=== PATIENT | male | born 1995 | race Caucasian/White ===

== ENCOUNTER 2017-01-29 00:40 | Emergency (ER) | payer SELFPAY ==
[2017-01-29] MEDS ORDERED: Cephalexin 500 MG Cap PO ONE (01:04)
[2017-01-29] MEDS ORDERED: Bacitracin Oint 1 GM U/D Packet TOP ONE (01:04)
--- NOTE | 2017-01-29 01:09 | EDM.PDOC ---
ED HPI GENERAL MEDICAL PROBLEM - General Chief Complaint: Skin Complaint Stated Complaint: LEFT FOOT BIG TOENAIL Time Seen by Provider: 01/29/17 01:05 Source of Information: Reports: Patient - History of Present Illness INITIAL COMMENTS - FREE TEXT/NARRATIVE: HISTORY AND PHYSICAL: History of present illness: []Patient presents couple days ago he stubbed his toe leading to lifting at his toenail on the left great toe He removed obtain toenail on his own at home tonight, and presents for a check. The toenail itself is completely remove minimal bleeding there is no redness warmth or exudate culture No fever nausea vomiting chills sweats Review of systems: As per history of present illness and below otherwise all systems reviewed and negative. Past medical history: As per history of present illness and as reviewed below otherwise noncontributory. Surgical history: As per history of present illness and as reviewed below otherwise noncontributory. Social history: No reported history of drug or alcohol abuse. Family history: As per history of present illness and as reviewed below otherwise noncontributory. Physical exam: HEENT: Atraumatic, normocephalic, pupils reactive, negative for conjunctival pallor or scleral icterus, mucous membranes moist, throat clear, neck supple, nontender, trachea midline. Lungs: Clear to auscultation, breath sounds equal bilaterally, chest nontender. Heart: S1S2, regular, negative for clicks, rubs, or JVD. Abdomen: Soft, nondistended, nontender. Negative for masses or hepatosplenomegaly. Negative for costovertebral tenderness. Pelvis: Stable nontender. Genitourinary: Deferred. Rectal: Deferred. Extremities: Atraumatic, negative for cords or calf pain. Neurovascular unremarkable. Neuro: Awake, alert, oriented. Cranial nerves II through XII unremarkable. Cerebellum unremarkable. Motor and sensory unremarkable throughout. Exam nonfocal. Left foot as per history of present illness otherwise unremarkable Diagnostics: []Patient declines x-rays/refused x-ray of great toe Therapeutics: []Tetanus status is updated Keflex 500 mg now and twice a day #20 no refill Epsom soaks 3 times a day 7 days Impression: Patient self removal of toenail left great toe Definitive disposition and diagnosis as appropriate pending reevaluation and review of above. Left 1-Hallux Pain Score (Numeric/FACES): 1 - Related Data Allergies Allergy/AdvReac Type Severity Reaction Status Date / Time No Known Allergies Allergy Verified 01/29/17 00:53 Home Meds: Home Meds . [No Known Home Meds] 01/29/17 [History] Past Medical History - Past Health History Medical/Surgical History: Denies Medical/Surgical History Social & Family History - Family History Family Medical History: Noncontributory - Tobacco Use Smoking Status *Q: Never Smoker Second Hand Smoke Exposure: No - Caffeine Use Caffeine Use: Reports: Coffee Caffeine Use Comment: 1cup/day - Recreational Drug Use Recreational Drug Use: No ED ROS GENERAL - Review of Systems Review Of Systems: ROS reveals no pertinent complaints other than HPI. ED EXAM, SKIN/RASH Exam: See Below Course - Vital Signs Last Recorded V/S: Last Vital Signs Temp 36.8 C 01/29/17 00:50 Pulse 101 H 01/29/17 00:50 Resp 18 01/29/17 00:50 BP 141/82 H 01/29/17 00:50 Pulse Ox 100 01/29/17 00:50 - Orders/Labs/Meds Meds: Medications Discontinued Medications Generic Name Dose Route Start Last Admin Trade Name Conq PRN Reason Stop Dose Admin Bacitracin 1 dose 01/29/17 01:04 Bacitracin Oint 1 Gm TOP 01/29/17 01:05 ONETIME ONE Cephalexin 500 mg 01/29/17 01:04 Keflex PO 01/29/17 01:05 ONETIME ONE Departure - Departure Time of Disposition: 01:07 Disposition: Home, Self-Care 01 Condition: Good Clinical Impression: Toenail torn away - Discharge Information Forms: ED Department Discharge Additional Instructions: Epsom soaks 3 times daily 7-10 days Keflex 500 mg by mouth twice a day #20 no refill Return if redness warmth or pus drainage Bacitracin and Telfa dressings as needed Keep foot clean and dry Follow-up with primary care in 2 weeks sooner as needed
[2017-01-29 02:19] VITALS: BP 130/75
== END 2017-01-29 01:40 | disposition home or self-care (01) ==
LOC: MW.ED 00:40
DX: S91.202A Unspecified open wound of left great toe with damage to nail, initial encounter (principal); X58.XXXA Exposure to other specified factors, initial encounter
CPT/HCPCS: 99283; A9270; 99282

== ENCOUNTER 2018-12-25 21:32 | Emergency (ER) | payer OTHER ==
--- NOTE | 2018-12-25 22:10 | EDM.PDOC ---
ED HPI GENERAL MEDICAL PROBLEM - General Chief Complaint: ENT Problem Stated Complaint: HEARING LOSS IN RT EAR Time Seen by Provider: 12/25/18 21:59 Source of Information: Reports: Patient History Limitations: Reports: No Limitations - History of Present Illness INITIAL COMMENTS - FREE TEXT/NARRATIVE: HISTORY AND PHYSICAL: History of present illness: Patient is a 23-year-old male presents to the ED with complaint of unable to hear from his right ear. He states it has been bothering him on and off for the past week, today got worse. States his hearing is not completely gone but is very muffled. He occasionally has pain in the ear. Denies fevers, chills, nasal congestion, cough, headache, SOB. He also notes some ringing in his ear. Review of systems: As per history of present illness and below otherwise all systems reviewed and negative. Past medical history: As per history of present illness and as reviewed below otherwise noncontributory. Surgical history: As per history of present illness and as reviewed below otherwise noncontributory. Social history: No reported history of drug or alcohol abuse. Family history: As per history of present illness and as reviewed below otherwise noncontributory. Physical exam: General: Patient sitting comfortably in no acute distress and nontoxic appearing HEENT: Left TM clear. Right TM not visualized secondary to cerumen impaction. Atraumatic, normocephalic, pupils reactive, negative for conjunctival pallor or scleral icterus, mucous membranes moist, throat clear, neck supple, nontender, trachea midline. No meningeal signs. Lungs: Clear to auscultation, breath sounds equal bilaterally, chest nontender. Heart: S1S2, regular, negative for clicks, rubs, or overt murmur. Abdomen: Soft, nondistended, nontender. Negative for masses or hepatosplenomegaly. Negative for costovertebral tenderness. No rigidity, rebound , guarding. Pelvis: Stable nontender. Genitourinary: Deferred. Rectal: Deferred. Extremities: Atraumatic, negative for cords or calf pain. Neurovascular unremarkable. Neuro: Awake, alert, oriented. Cranial nerves II through XII unremarkable. Cerebellum unremarkable. Motor and sensory unremarkable throughout. Exam nonfocal. Notes: Diagnostics: None Therapeutics: cerumen removal Prescriptions: Impression: Cerumen impaction, otitis externa Plan: 1. Use drops as instructed, avoid water in ears. 2. Follow up with primary care provider 3. return to ED as needed as discussed Definitive disposition and diagnosis as appropriate pending reevaluation and review of above. Right ear Pain Score (Numeric/FACES): 10 - Related Data Allergies Allergy/AdvReac Type Severity Reaction Status Date / Time No Known Allergies Allergy Verified 12/25/18 21:39 Home Meds: Home Meds Ciprofloxacin/Hydrocortisone [Cipro HC Otic Susp] 1 drop OT BID #1 bottle [Rx] Past Medical History - Past Health History Medical/Surgical History: Denies Medical/Surgical History HEENT History: Reports: None Cardiovascular History: Reports: None Respiratory History: Reports: None Gastrointestinal History: Reports: None Genitourinary History: Reports: None Musculoskeletal History: Reports: None Neurological History: Reports: None Psychiatric History: Reports: None Endocrine/Metabolic History: Reports: None Hematologic History: Reports: None Immunologic History: Reports: None Oncologic (Cancer) History: Reports: None Dermatologic History: Reports: None - Past Surgical History Head Surgeries/Procedures: Reports: None HEENT Surgical History: Reports: Myringotomy w Tube(s) Cardiovascular Surgical History: Reports: None Respiratory Surgical History: Reports: None GI Surgical History: Reports: None Male Surgical History: Reports: None Endocrine Surgical History: Reports: None Neurological Surgical History: Reports: None Musculoskeletal Surgical History: Reports: None Oncologic Surgical History: Reports: None Dermatological Surgical History: Reports: None Social & Family History - Family History Family Medical History: Noncontributory - Tobacco Use Smoking Status *Q: Current Every Day Smoker Years of Tobacco use: 2 Packs/Tins Daily: 1 - Caffeine Use Caffeine Use: Reports: Coffee, Energy Drinks Caffeine Use Comment: 1cup/day - Recreational Drug Use Recreational Drug Use: No ED ROS ENT - Review of Systems Review Of Systems: ROS reveals no pertinent complaints other than HPI. ED EXAM, ENT - Physical Exam Exam: See Below (see dictation) Course - Vital Signs Last Recorded V/S: Last Vital Signs Temp 96.6 F 12/25/18 21:39 Pulse 101 H 12/25/18 21:39 Resp 18 12/25/18 21:39 BP 155/89 H 12/25/18 21:39 Pulse Ox 97 12/25/18 21:39 Departure - Departure Time of Disposition: 22:40 Disposition: Home, Self-Care 01 Condition: Good Clinical Impression: Impacted cerumen of right ear, Otitis externa of right ear - Discharge Information Prescriptions: Ciprofloxacin/Hydrocortisone [Cipro HC Otic Susp] 1 drop OT BID #1 bottle Referrals: PCP,None [Primary Care Provider] - Forms: ED Department Discharge Additional Instructions: The following information is given to patients seen in the emergency department who are being discharged to home. This information is to outline your options for follow-up care. We provide all patients seen in our emergency department with a follow-up referral. The need for follow-up, as well as the timing and circumstances, are variable depending upon the specifics of your emergency department visit. If you don't have a primary care physician on staff, we will provide you with a referral. We always advise you to contact your personal physician following an emergency department visit to inform them of the circumstance of the visit and for follow-up with them and/or the need for any referrals to a consulting specialist. The emergency department will also refer you to a specialist when appropriate. This referral assures that you have the opportunity for follow-up care with a specialist. All of these measure are taken in an effort to provide you with optimal care, which includes your follow-up. Under all circumstances we always encourage you to contact your private physician who remains a resource for coordinating your care. When calling for follow-up care, please make the office aware that this follow-up is from your recent emergency room visit. If for any reason you are refused follow-up, please contact the [facility] at and asked to speak to the emergency department charge nurse. [facility] [address] [place] [id number] [id number] 1. Use drops as instructed, avoid water in ears. 2. Follow up with primary care provider 3. return to ED as needed as discussed
[2018-12-25 23:00] VITALS: BP 150/90
== END 2018-12-25 22:57 | disposition home or self-care (01) ==
LOC: MW.ED 21:32
DX: H61.21 Impacted cerumen, right ear (principal); H60.91 Unspecified otitis externa, right ear
CPT/HCPCS: 99282

== ENCOUNTER 2019-11-29 03:31 | Emergency (ER) | payer OTHER ==
[2019-11-29] MEDS ORDERED: Ibuprofen 600 MG Tab ONE (03:53)
[2019-11-29] MEDS ORDERED: Acetaminophen/HYDROcodone 325-5 MG Tab ONE (03:53)
[2019-11-29 08:51] VITALS: BP 180/91; PULSE 120
--- NOTE | 2019-11-29 11:20 | CR ---
Indication: Trauma Technique: Three views of the left ankle Comparison: None Findings: There is no fracture or joint dislocation. The ankle joint is congruent. There is no appreciable joint effusion. Mild edema is noted over the anterior and lateral ankle. Impression: No acute fracture or dislocation. Dictated by Rena Calderon MD @ Nov 29 2019 4:51AM Signed by: Rena Calderon MD @11/29/2019 4:53:40 AM (Electronic Signature) [facility]
== END 2019-11-29 04:20 | disposition home or self-care (01) ==
LOC: MW.ED 03:31
DX: S93.402A Sprain of unspecified ligament of left ankle, initial encounter (principal); S70.211A Abrasion, right hip, initial encounter; S80.212A Abrasion, left knee, initial encounter; V28.4XXA Motorcycle driver injured in noncollision transport accident in traffic accident, initial encounter
CPT/HCPCS: 73610-26-LT; 73610-LT; 99283

== ENCOUNTER 2021-12-22 12:22 | Emergency (ER) | payer OTHER ==
[2021-12-22 15:09] LABS: CORONAVIRUS COVID-19 NAA NEGATIVE (NEGATIVE); INFLUENZA A NAA NEGATIVE (NEGATIVE); INFLUENZA B NAA NEGATIVE (NEGATIVE)
[2021-12-22] MEDS ORDERED: Sodium Chloride 0.9% 1,000 ML IV ONE ×3 (15:19→17:15)
[2021-12-22 15:46] LABS: HEMOGLOBIN A1C 10.8 %
[2021-12-22 15:49] LABS: CARBON DIOXIDE,CO2 10.3 mmol/L (21.0-32.0); POTASSIUM,K 3.7 mmol/L (3.5-5.1)
[2021-12-22] MEDS ORDERED: 50% Dextrose in Water 50 ML Syringe IVPUSH PRN (16:18)
[2021-12-22] MEDS ORDERED: Glucagon,Human Recombinant 1 MG Vial IM PRN (16:18)
[2021-12-22] MEDS ORDERED: Insulin Regular, Human 100 Units/ML 10 ML Vial SUBCUT ONE (16:18)
[2021-12-22] MEDS ORDERED: Insulin Regular in 0.9 % NACL 100 ML IV SCH (16:30)
[2021-12-22] MEDS ORDERED: Sodium Bicarbonate 8.4% 50 MEQ/50 ML Syringe IVPUSH ONE (16:38)
[2021-12-22 20:55] LABS: CARBON DIOXIDE,CO2 15.3 mmol/L (21.0-32.0)
[2021-12-22] MEDS ORDERED: Potassium Chloride 20 MEQ in Premix Bag 1 BAG IV ONE (21:36)
[2021-12-22 21:37] VITALS: BP 131/79; PULSE 118
[2021-12-22] MEDS ORDERED: Potassium Chloride 20 MEQ Tab.ER PO ONE (21:45)
== END 2021-12-22 20:40 ==
LOC: MW.ED 12:22
DX: E11.10 Type 2 diabetes mellitus with ketoacidosis without coma (principal); Z20.822 Contact with and (suspected) exposure to COVID-19
CPT/HCPCS: 0240U; 36415; 71046; 80048; 80053; 80305; 80307; 81001; 82009; 82803; 83036; 83605; 83690; 83735; 85025; 85379; 87040; 87077; 87154; 87186; 93005; 96361; 96374; 99285; A9270; J1815; J3480; J7030; 93010